=== PATIENT | female | born 1995 | race Caucasian/White ===

== ENCOUNTER 2016-10-11 22:06 | Emergency (ER) | payer SELFPAY ==
[~2016-10-11] VITALS: Ht 154.9 cm; Wt 82.0 kg
[~2016-10-11 22:06] MED LIST: ALBU6.7H INH
[2016-10-11 22:22] VITALS: BP 131/75
== END 2016-10-12 01:50 | disposition left against medical advice (07) ==
LOC: ER 22:06
DX: R11.2 Nausea with vomiting, unspecified (principal); J45.909 Unspecified asthma, uncomplicated

== ENCOUNTER 2017-03-26 18:15 | Emergency (ER) | payer SELFPAY ==
[~2017-03-26] VITALS: Ht 154.9 cm; Wt 84.0 kg
[2017-03-26 18:19] VITALS: BP 102/75
== END 2017-03-26 23:52 | disposition left against medical advice (07) ==
LOC: ER 20:52
DX: O20.8 Other hemorrhage in early pregnancy (principal); Z3A.12 12 weeks gestation of pregnancy; Z53.21 Procedure and treatment not carried out due to patient leaving prior to being seen by health care provider

== ENCOUNTER 2017-03-31 20:34 | Emergency (ER) | payer SELFPAY ==
[~2017-03-31] VITALS: Ht 154.9 cm; Wt 84.7 kg
[2017-03-31] MEDS ORDERED: ALBUTEROL (0.083%) 2.5MG/3ML NEB HHN STA (21:57)
[2017-03-31] MEDS ORDERED: IPRATROPIUM BROMIDE (0.02%) 0.5MG/2.5ML NEB HHN STA (21:57)
[2017-03-31] MEDS ORDERED: PREDNISONE 20MG TABLET PO STA (21:57)
[2017-03-31 22:16] VITALS: BP 115/73
[2017-03-31] MEDS ORDERED: IPRATROPIUM/ALBUTEROL 0.5-3(2.5)MG/3ML NEB ONE (22:18)
[2017-03-31] MEDS ORDERED: ALBUTEROL (0.5%) 2.5MG/0.5ML NEB HHN ONE (22:19)
== END 2017-03-31 23:55 | disposition home or self-care (01) ==
LOC: ER 20:34
DX: O16.1 Unspecified maternal hypertension, first trimester (principal); O26.891 Other specified pregnancy related conditions, first trimester; J45.901 Unspecified asthma with (acute) exacerbation; Z3A.12 12 weeks gestation of pregnancy
CPT/HCPCS: 94640; 99283; J7512; J7611; Z7610; J7620

== ENCOUNTER 2017-08-04 10:01 | Observation (INO) | payer MEDICAID ==
[~2017-08-04] VITALS: Ht 154.9 cm; Wt 86.2 kg
[2017-08-04] MEDS ORDERED: PNV1TABL76 PO (10:28)
[2017-08-04] MEDS ORDERED: IRON-1 PO (10:28)
[2017-08-04 11:01] LABS: CLARITY URINE CLEAR (CLEAR); COLOR URINE YELLOW (YELLOW); KETONES URINE NEGATIVE (NEGATIVE); LEUKOCYTE ESTERASE URINE 2+ (NEGATIVE); NITRITE URINE NEGATIVE (NEGATIVE); OCCULT BLOOD URINE NEGATIVE (NEGATIVE); PROTEIN URINE NEGATIVE (NEGATIVE); SPECIFIC GRAVITY URINE 1.015 (1.005-1.030)
[2017-08-04] MEDS ORDERED: CEFAZOLIN 2,000 MG in DEXT 5% WATER 100 ML IV SCH (14:00)
== END 2017-08-04 12:05 | disposition home or self-care (01) ==
LOC: L&D 10:01
PROVIDERS: ADMIT Obstetrics & Gynecology; ATTEND Obstetrics & Gynecology
DX: O26.853 Spotting complicating pregnancy, third trimester (principal); O26.893 Other specified pregnancy related conditions, third trimester; R10.9 Unspecified abdominal pain; Z3A.32 32 weeks gestation of pregnancy
CPT/HCPCS: 76805; 76818; 81001; G0378; J0690; J7060

== ENCOUNTER 2017-08-05 19:28 | Observation (INO) | payer MEDICAID ==
[~2017-08-05] VITALS: Ht 154.9 cm; Wt 86.2 kg
[~2017-08-05 19:28] MED LIST changes: +IRON-1 PO; +PNV1TABL76 PO
[2017-08-05] MEDS ORDERED: CEFAZOLIN 2,000 MG in SODIUM CHLORIDE 0.9% 100 ML IV NR (20:00)
[2017-08-05] MEDS ORDERED: LACTATED RINGERS 1,000 ML IV SCH (20:00)
[2017-08-05] MEDS ORDERED: ONDANSETRON HCL 4MG/2ML VIAL IV NR (20:00)
== END 2017-08-05 21:17 | disposition home or self-care (01) ==
LOC: L&D 19:28
PROVIDERS: ADMIT Obstetrics & Gynecology; ATTEND Obstetrics & Gynecology
DX: O21.2 Late vomiting of pregnancy (principal); O26.893 Other specified pregnancy related conditions, third trimester; O99.89 Other specified diseases and conditions complicating pregnancy, childbirth and the puerperium; M54.6 Pain in thoracic spine; R19.7 Diarrhea, unspecified; R10.10 Upper abdominal pain, unspecified; Z3A.32 32 weeks gestation of pregnancy
CPT/HCPCS: 96365; 99281; G0378; J0690; J7120; 96360; J2405; J7050

== ENCOUNTER 2017-08-19 20:21 | Observation (INO) | payer MEDICAID ==
[~2017-08-19] VITALS: Ht 154.9 cm; Wt 86.2 kg
[2017-08-19 21:45] LABS: CLARITY URINE CLEAR (CLEAR); COLOR URINE YELLOW (YELLOW); KETONES URINE 2+ (NEGATIVE); LEUKOCYTE ESTERASE URINE 2+ (NEGATIVE); NITRITE URINE NEGATIVE (NEGATIVE); OCCULT BLOOD URINE NEGATIVE (NEGATIVE); PH URINE 6.5 (4.5-8.0); PROTEIN URINE NEGATIVE (NEGATIVE); SPECIFIC GRAVITY URINE 1.023 (1.005-1.030)
[2017-08-19] MEDS ORDERED: DEXT 5%/LACTATED RINGERS 1,000 ML IV SCH (23:00)
[2017-08-19] MEDS ORDERED: CEFAZOLIN 2,000 MG in SODIUM CHLORIDE 0.9% 100 ML IV NR (23:30)
== END 2017-08-20 00:05 | disposition home or self-care (01) ==
LOC: L&D 20:21
PROVIDERS: ADMIT Obstetrics & Gynecology; ATTEND Obstetrics & Gynecology
DX: O26.893 Other specified pregnancy related conditions, third trimester (principal); R10.30 Lower abdominal pain, unspecified; R10.13 Epigastric pain; R06.02 Shortness of breath; O99.513 Diseases of the respiratory system complicating pregnancy, third trimester; J45.909 Unspecified asthma, uncomplicated; Z3A.34 34 weeks gestation of pregnancy
CPT/HCPCS: 81001; 96365; G0378; J0690; J7120; 96360; J7050

== ENCOUNTER 2017-09-11 21:34 | Observation (INO) | payer MEDICAID ==
[~2017-09-11] VITALS: Ht 154.9 cm; Wt 88.0 kg
== END 2017-09-11 22:52 | disposition home or self-care (01) ==
LOC: L&D 21:34
PROVIDERS: ADMIT Obstetrics & Gynecology; ATTEND Obstetrics & Gynecology
DX: O26.893 Other specified pregnancy related conditions, third trimester (principal); R10.2 Pelvic and perineal pain; Z3A.36 36 weeks gestation of pregnancy
CPT/HCPCS: 99281; G0378

== ENCOUNTER 2017-09-16 23:46 | Observation (INO) | payer MEDICAID ==
[~2017-09-16] VITALS: Ht 154.9 cm; Wt 88.0 kg
== END 2017-09-17 02:00 | disposition home or self-care (01) ==
LOC: L&D 23:46
PROVIDERS: ADMIT Obstetrics & Gynecology; ATTEND Obstetrics & Gynecology
DX: O46.93 Antepartum hemorrhage, unspecified, third trimester (principal); O26.893 Other specified pregnancy related conditions, third trimester; R10.30 Lower abdominal pain, unspecified; Z3A.37 37 weeks gestation of pregnancy
CPT/HCPCS: 76815; 76818; 99281; G0378

== ENCOUNTER 2017-09-22 13:41 | Observation (INO) | payer MEDICAID ==
[~2017-09-22] VITALS: Ht 162.6 cm; Wt 88.0 kg
== END 2017-09-22 15:00 | disposition home or self-care (01) ==
LOC: L&D 13:41
PROVIDERS: ADMIT Obstetrics & Gynecology; ATTEND Obstetrics & Gynecology
DX: O26.893 Other specified pregnancy related conditions, third trimester (principal); Z3A.37 37 weeks gestation of pregnancy
CPT/HCPCS: 99281; G0378

== ENCOUNTER 2017-09-25 13:42 | Observation (INO) | payer MEDICAID ==
[~2017-09-25] VITALS: Ht 154.9 cm; Wt 87.5 kg
[2017-09-25] MEDS ORDERED: ONDANSETRON HCL 4MG/2ML VIAL IV ONE (14:30)
[2017-09-25] MEDS ORDERED: ACETAMINOPHEN 500MG TABLET PO ONE (14:30)
[2017-09-25] MEDS ORDERED: DEXT 5%/LACTATED RINGERS 1,000 ML IV SCH (14:30)
== END 2017-09-25 14:50 | disposition left against medical advice (07) ==
LOC: L&D 13:42
PROVIDERS: ADMIT Obstetrics & Gynecology; ATTEND Obstetrics & Gynecology
DX: O26.893 Other specified pregnancy related conditions, third trimester (principal); R03.0 Elevated blood-pressure reading, without diagnosis of hypertension; R42 Dizziness and giddiness; R11.0 Nausea; Z3A.38 38 weeks gestation of pregnancy
CPT/HCPCS: 99281; G0378; J2405

== ENCOUNTER 2017-10-02 21:22 | Observation (INO) | payer MEDICAID ==
[~2017-10-02] VITALS: Ht 154.9 cm; Wt 88.5 kg
== END 2017-10-02 23:00 | disposition home or self-care (01) ==
LOC: L&D 21:22
PROVIDERS: ADMIT Obstetrics & Gynecology; ATTEND Obstetrics & Gynecology
DX: O26.893 Other specified pregnancy related conditions, third trimester (principal); R10.2 Pelvic and perineal pain; Z3A.39 39 weeks gestation of pregnancy
CPT/HCPCS: G0378 ×2

== ENCOUNTER 2017-10-06 16:37 | Observation (INO) | payer MEDICAID | END 2017-10-06 17:40 | disposition home or self-care (01) | LOC: L&D 16:37 | PROVIDERS: ADMIT Obstetrics & Gynecology; ATTEND Obstetrics & Gynecology | DX: O99.513 Diseases of the respiratory system complicating pregnancy, third trimester (principal); J45.909 Unspecified asthma, uncomplicated; Z3A.39 39 weeks gestation of pregnancy | CPT/HCPCS: 99281; G0378 ==

== ENCOUNTER 2017-10-26 13:30 | Emergency (ER) | payer MEDICAID ==
[~2017-10-26] VITALS: Ht 162.6 cm; Wt 81.0 kg
[2017-10-26 13:33] VITALS: BP 122/82
[2017-10-26] MEDS ORDERED: IPRATROPIUM BROMIDE (0.02%) 0.5MG/2.5ML NEB HHN STA (13:35)
[2017-10-26] MEDS ORDERED: ALBUTEROL (0.083%) 2.5MG/3ML NEB HHN STA (13:35)
[2017-10-26] MEDS ORDERED: PREDNISONE 20MG TABLET PO STA (13:35)
== END 2017-10-26 16:45 | disposition left against medical advice (07) ==
LOC: ER 13:46
DX: J45.901 Unspecified asthma with (acute) exacerbation (principal)
CPT/HCPCS: 99281; J7611

== ENCOUNTER 2017-10-26 17:20 | Emergency (ER) | payer MEDICAID ==
[~2017-10-26] VITALS: Ht 160 cm; Wt 81.0 kg
[2017-10-26] MEDS ORDERED: PREDNISONE 20MG TABLET PO STA (17:42)
[2017-10-26] MEDS ORDERED: ALBUTEROL (0.083%) 2.5MG/3ML NEB HHN STA (17:42)
[2017-10-26] MEDS ORDERED: IPRATROPIUM BROMIDE (0.02%) 0.5MG/2.5ML NEB HHN STA (17:42)
[2017-10-26 19:03] VITALS: BP 124/84
== END 2017-10-26 19:04 | disposition home or self-care (01) ==
LOC: ER 17:53
DX: J45.901 Unspecified asthma with (acute) exacerbation (principal)
CPT/HCPCS: 94640; 99283; J7512; J7611

== ENCOUNTER 2017-10-26 21:32 | Emergency (ER) | payer MEDICAID ==
[~2017-10-26] VITALS: Ht 162.6 cm; Wt 81.0 kg
[2017-10-27] MEDS ORDERED: IPRATROPIUM/ALBUTEROL 0.5-3(2.5)MG/3ML NEB HHN ONE (03:45)
[2017-10-27 05:58] VITALS: BP 115/73
== END 2017-10-27 06:02 | disposition home or self-care (01) ==
LOC: ER 21:32
DX: J45.901 Unspecified asthma with (acute) exacerbation (principal); R03.0 Elevated blood-pressure reading, without diagnosis of hypertension
CPT/HCPCS: 71045; 94640; 99283; J7620